=== PATIENT | male | born 1945 | race Native Hawaiian/Other Pacific Islander ===

== ENCOUNTER 2019-12-18 12:37 | Emergency (ER) | payer OTHER ==
[~2019-12-18] VITALS: Ht 165.1 cm; Wt 59.0 kg
[2019-12-18 12:43] VITALS: BP 132/70; TEMP 98.5
[2019-12-18 13:19] LABS: PLATELET COUNT 150 K/uL (142-355)
[2019-12-18 13:28] LABS: POTASSIUM 4.5 mmol/L (3.6-5.2)
== END 2019-12-18 14:07 | disposition other institution (70) ==
LOC: ED 12:37
PROVIDERS: Emergency Medicine
DX: R44.2 Other hallucinations (principal); F28 Other psychotic disorder not due to a substance or known physiological condition; Z11.59 Encounter for screening for other viral diseases; Z04.6 Encounter for general psychiatric examination, requested by authority
CPT/HCPCS: 80053; 85027; 87635; 93005; 99283; U0002